=== PATIENT | male | born 1965 | race Caucasian/White ===

== ENCOUNTER 2016-12-04 12:21 | Emergency (ER) | payer OTHER, BC ==
[~2016-12-04] VITALS: Ht 172.7 cm; Wt 107.4 kg
[~2016-12-04 12:21] MED LIST: APRESOLINE100 MG PO; APRESOLINE50 MG PO; ASPIR-TRIN325 M1 PO; ASPIRIN EC325 MG PO; ASPIRIN NON IR325 MG PO; ASPIRIN325 MG PO; Apresolin PO; BENICAR HCT 401 EACH PO; BENICAR HCT1 TABLE1 PO; CALCIUM ACETAT667 M2 PO; CARDIZEM CD,CA240 MG PO; CARDURA4 MG PO; CATAPRES0.2 MG PO; CIPRO500 M1 PO; COLACE100 MG PO; DEPO-TESTOS100 MG/ML IM; DIALYVITE 3,001 EACH PO; ENULOSE10 GM/15 M PO; FISH OIL 1,0001 EAC7 PO; FISH OIL CONC1 EACH PO; FLEXERIL10 MG PO; FORMULA E400 UNIT PO; FUROSEMIDE40 MG PO; GARLIC OIL1000 MG PO; GARLIC1000 MG PO; GEMFIBROZIL600 MG PO; GLUCOSAMINE CH1 EAC2 PO; GLUCOSAMINE-CH1 EA14 PO; HYDRALAZINE HC100 M1 PO; KETOCONAZOLE200 MG PO; LABETALOL HCL100 MG PO; LABETALOL HCL200 MG PO; LASIX40 MG PO; LASIX80 MG PO; LIDOCAINE-PRIL1 EACH TP; LISINOPRIL10 MG PO; LOMOTIL TABLET1 EACH PO; LOPRESSOR100 M1 PO; LORTAB 5-325 M1 EACH PO; Lopressor PO; MEN'S MULTI-VI1 EACH PO; METOPROLOL SUCC25 MG PO; METOPROLOL TAR100 MG PO; NAPROSYN500 MG PO; NEURONTIN100 MG PO; NIFEDICAL XL60 MG PO; NORCO 5/3251 TABLET PO; NORVASC10 MG PO; NOVOLIN 70100 UNITS/ SC; NOVOLIN,HU100 UNITS/ SC; NOVOLOG 10100 UNITS/ SC; NOVOLOG PE100 UNITS/ SC; OMEGA 3-6-91200 MG PO; PANTOPRAZOLE SO40 MG PO; PERCOCET 5/31 TABLET PO; PHOSLO667 MG PO; PRILOSEC20 MG PO; PRINIVIL20 MG PO; PROTONIX40 MG PO; Phoslo PO; RENAL CAPS SOFTG1 MG PO; SENSIPAR30 MG PO; SIMVASTATIN40 MG PO; STOOL SOFTENER100 MG PO; Tylenol Regular Stre PO; VIIBRYD40 MG PO; VITAMIN B-650 MG PO; VITAMIN D1000 INTUN PO; VITAMIN D32000 UNIT PO; VITAMIN E400 UNIT PO; VITAMIN-E400 INTUNI PO; ZAROXOLYN,DIULO5 MG PO; ZESTRIL,PRINIVI10 M1 PO; ZITHROMAX500 MG PO; ZOCOR80 M1 PO; ZYLOPRIM100 MG PO; ZYLOPRIM300 MG PO; Zocor PO
[2016-12-04 13:00] LABS: HEMATOCRIT 32.4 % (38.0-50.0); MCH 30.1 PG (29.0-34.0); MEAN PLAT.VOLUME 9.9 uM^3 (9.0-12.4); PLATELET COUNT 200 K/uL (156-360); RBC DIS.WIDTH-CV 14.2 % (11.8-14.6); RBC DIS.WIDTH-SD 47.4 % (39-53); RED BLOOD COUNT 3.56 M/uL (4.00-5.50); WHITE BLOOD COUNT 6.4 K/uL (4.1-10.2)
[2016-12-04 13:13] LABS: ADD MIUA? YES; BILIRUBIN NEGATIVE; BLOOD SMALL; COLOR YELLOW ((YELLOW)); GLUCOSE (STRIP) NEGATIVE; KETONES NEGATIVE; LEUKOCYTES NEGATIVE; NITRITE NEGATIVE; PROTEIN (STRIP) 100; UROBILINOGEN 0.2 MG/DL (0.2-1.0)
[2016-12-04] MEDS ORDERED: LABETALOL HCL300 MG PO (13:13)
[2016-12-04 13:14] LABS: CHLORIDE 98 mEq/L (99-109); POTASSIUM 4.8 mEq/L (3.7-5.4); SODIUM 137 mEq/L (136-147)
[2016-12-04] MEDS ORDERED: ALLOPURINOL300 MG PO (13:14)
[2016-12-04 13:15] LABS: GLUCOSE 83 mg/dL (70-99)
[2016-12-04] MEDS ORDERED: ASPIR 8181 M1 PO (13:16)
[2016-12-04] MEDS ORDERED: RENAPLEX D PO (13:16)
[2016-12-04 13:17] LABS: ANION GAP 15 MEQ/L (2-14)
[2016-12-04] MEDS ORDERED: LORATADINE10 M2 PO (13:17)
[2016-12-04 13:19] LABS: BACTERIA NONE SEEN /HPF; EPITHELIAL CELLS NONE SEEN /HPF; MUCUS NONE SEEN /LPF; RED BLOOD CELLS 0-5 /HPF (0-5); UCUL ADDED? NO; WHITE BLOOD CELLS NONE SEEN /HPF (0-5)
[2016-12-04 13:19] LABS: GFR ESTIMATE (CALCULATED) 9 mL/min/
[2016-12-04 13:20] LABS: UREA NITROGEN (BUN) 75 mg/dL (9-23)
[2016-12-04] MEDS ORDERED: FISH OIL OMEGA1 EAC2 PO (13:20)
[2016-12-04] MEDS ORDERED: HUMALOG MI100 UNIT/5 SC (13:23)
[2016-12-04] MEDS ORDERED: FLEXERIL5 MG PO (15:18)
[2016-12-04] MEDS ORDERED: NORCO 5/3251 TABLET PO (15:20)
[2016-12-04 15:28] VITALS: BP 182/84
== END 2016-12-04 15:30 | disposition home or self-care (01) ==
LOC: EME 12:21
DX: S39.012A Strain of muscle, fascia and tendon of lower back, initial encounter (principal); X50.3XXA Overexertion from repetitive movements, initial encounter; Y93.H1 Activity, digging, shoveling and raking; I12.9 Hypertensive chronic kidney disease with stage 1 through stage 4 chronic kidney disease, or unspecified chronic kidney disease; N18.9 Chronic kidney disease, unspecified; Z99.2 Dependence on renal dialysis; J45.909 Unspecified asthma, uncomplicated; I11.0 Hypertensive heart disease with heart failure; I50.9 Heart failure, unspecified; E11.9 Type 2 diabetes mellitus without complications; E78.5 Hyperlipidemia, unspecified; I25.2 Old myocardial infarction; K21.9 Gastro-esophageal reflux disease without esophagitis; I25.10 Atherosclerotic heart disease of native coronary artery without angina pectoris; Z98.61 Coronary angioplasty status; Z79.4 Long term (current) use of insulin; Z79.82 Long term (current) use of aspirin; Z87.891 Personal history of nicotine dependence
CPT/HCPCS: 74176; 80048; 81003; 85027; 99281; 99284

== ENCOUNTER 2017-05-18 10:51 | Day surgery (SDC) | payer OTHER, BC ==
[~2017-05-18] VITALS: Ht 175.3 cm; Wt 102.1 kg
[~2017-05-18 10:51] MED LIST changes: +ALLOPURINOL300 MG PO; +ASPIR 8181 M1 PO; +AURYXIA PO; +FISH OIL OMEGA1 EAC2 PO; +FLEXERIL5 MG PO; +HUMALOG MI100 UNIT/5 SC; +HUMALOG100 UNIT/1 SC; +LABETALOL HCL300 MG PO; +LORATADINE10 M2 PO; +RENAPLEX D PO; +REQUIP0.5 MG PO
[2017-05-18 11:39] VITALS: BP 175/80
[2017-05-18 11:39] LABS: POINT-OF-CARE METER ID UU14174212
[2017-05-18 12:55] LABS: METH RESISTANT S AUREUS PCR NEGATIVE (NEGATIVE); PROBE CHECK PASS; SPECIMEN PROCESSING CONTROL PASS
[2017-05-18 13:10] LABS: POINT-OF-CARE METER ID UU14174212
[2017-05-18 14:03] LABS: POINT-OF-CARE METER ID UU13113675
[2017-05-18 14:36] VITALS: BP 185/84
[2017-05-18 15:14] VITALS: BP 183/85
== END 2017-05-18 15:18 | disposition home or self-care (01) ==
LOC: SDC 10:51
PROVIDERS: Ophthalmology
DX: E11.3532 Type 2 diabetes mellitus with proliferative diabetic retinopathy with traction retinal detachment not involving the macula, left eye (principal); H26.9 Unspecified cataract; I12.0 Hypertensive chronic kidney disease with stage 5 chronic kidney disease or end stage renal disease; E11.22 Type 2 diabetes mellitus with diabetic chronic kidney disease; N18.6 End stage renal disease; Z99.2 Dependence on renal dialysis; I25.10 Atherosclerotic heart disease of native coronary artery without angina pectoris; K21.9 Gastro-esophageal reflux disease without esophagitis; Z95.5 Presence of coronary angioplasty implant and graft; Z79.82 Long term (current) use of aspirin; Z79.4 Long term (current) use of insulin; Z87.891 Personal history of nicotine dependence
CPT/HCPCS: 82948; 87641; J0690; J2250; J3300

== ENCOUNTER 2017-08-16 10:48 | Day surgery (SDC) | payer OTHER, BC ==
[~2017-08-16] VITALS: Ht 175.3 cm; Wt 102.1 kg
[~2017-08-16 10:48] MED LIST changes: +NOVOLOG MI100 UNIT/3 SC
[2017-08-16 11:22] LABS: HEMATOCRIT 38.6 % (38.0-50.0); MCV 90.2 FL (86-99)
[2017-08-16 11:47] LABS: ANION GAP 11 MEQ/L (2-14); CHLORIDE 96 MEQ/L (99-109); GFR ESTIMATE (CALCULATED) 20 mL/min/; GLUCOSE 158 mg/dL (70-99); SAMPLE HEMOLYSIS CHECK 0; SAMPLE ICTERIC CHECK 0; SAMPLE LIPEMIA CHECK 0; SODIUM 138 MEQ/L (136-147); UREA NITROGEN (BUN) 22 mg/dL (9-23)
[2017-08-16 11:50] VITALS: BP 115/63
[2017-08-16 12:03] LABS: POINT-OF-CARE METER ID UU14174212
[2017-08-16 12:32] LABS: METH RESISTANT S AUREUS PCR NEGATIVE (NEGATIVE)
[2017-08-16 12:35] LABS: PROBE CHECK PASS; SPECIMEN PROCESSING CONTROL PASS
[2017-08-16 16:04] LABS: POINT-OF-CARE METER ID UU13113675
[2017-08-16 16:36] VITALS: BP 179/108
[2017-08-16 16:45] VITALS: BP 140/70
[2017-08-16 17:37] VITALS: BP 177/76
== END 2017-08-16 18:00 | disposition home or self-care (01) ==
LOC: SDC 10:48
PROVIDERS: Orthopaedic Surgery Hand Surgery
DX: G56.21 Lesion of ulnar nerve, right upper limb (principal); M65.341 Trigger finger, right ring finger; G56.81 Other specified mononeuropathies of right upper limb; I12.0 Hypertensive chronic kidney disease with stage 5 chronic kidney disease or end stage renal disease; E11.22 Type 2 diabetes mellitus with diabetic chronic kidney disease; N18.6 End stage renal disease; Z99.2 Dependence on renal dialysis; E11.42 Type 2 diabetes mellitus with diabetic polyneuropathy; I25.10 Atherosclerotic heart disease of native coronary artery without angina pectoris; I25.2 Old myocardial infarction; Z95.5 Presence of coronary angioplasty implant and graft; J45.909 Unspecified asthma, uncomplicated; M10.9 Gout, unspecified; Z79.4 Long term (current) use of insulin; Z79.82 Long term (current) use of aspirin; Z83.3 Family history of diabetes mellitus; Z82.49 Family history of ischemic heart disease and other diseases of the circulatory system; Z84.1 Family history of disorders of kidney and ureter; Z88.8 Allergy status to other drugs, medicaments and biological substances
CPT/HCPCS: 80048; 82948; 85014; 85018; 87641; J0690; J3010; Q0175; S0020

== ENCOUNTER 2018-03-28 10:24 | Day surgery (SDC) | payer OTHER, BC ==
[~2018-03-28] VITALS: Ht 175.3 cm; Wt 102.1 kg
[~2018-03-28 10:24] MED LIST changes: +CALCIUM ACETAT667 MG PO; +GLUCOSAMINE H1500 MG PO; +HUMALOG MI100 UNIT/6 SC; +HUMALOG100 UNIT/1 SQ; +NORMODYNE,TRAN200 MG PO; +OMEGA 3-6-9 CO400 MG PO; +PROCARDIA XL30 MG PO; +RENAPLEX-D TAB1 EACH PO; +SENSIPAR60 MG PO
[2018-03-28 10:53] VITALS: BP 172/78
[2018-03-28 10:53] LABS: HEMATOCRIT 33.5 % (38.0-50.0); HEMOGLOBIN 11.1 G/DL (12.5-16.6); MCV 93.1 FL (86-99)
[2018-03-28 14:48] VITALS: BP 164/78
== END 2018-03-28 14:55 | disposition home or self-care (01) ==
LOC: SDC 10:24
PROVIDERS: Orthopaedic Surgery Hand Surgery
PROC: 0LN80ZZ Release Left Hand Tendon, Open Approach (ICD-10-PCS; principal; 2018-03-28)
DX: M65.342 Trigger finger, left ring finger (principal); M65.9 Synovitis and tenosynovitis, unspecified; I12.0 Hypertensive chronic kidney disease with stage 5 chronic kidney disease or end stage renal disease; E11.22 Type 2 diabetes mellitus with diabetic chronic kidney disease; N18.6 End stage renal disease; Z99.2 Dependence on renal dialysis; Z87.891 Personal history of nicotine dependence; Z79.4 Long term (current) use of insulin; J45.909 Unspecified asthma, uncomplicated; I25.2 Old myocardial infarction; Z95.5 Presence of coronary angioplasty implant and graft; Z79.82 Long term (current) use of aspirin; I25.10 Atherosclerotic heart disease of native coronary artery without angina pectoris
CPT/HCPCS: 82948; 85014; 85018; J2250; J2405; J2710; J7643; Q0175; S0020

== ENCOUNTER 2018-04-30 06:12 | Day surgery (SDC) | payer OTHER, BC ==
[~2018-04-30] VITALS: Ht 175.3 cm; Wt 102.1 kg
[~2018-04-30 06:12] MED LIST changes: +FLOMAX0.4 MG PO; -RENAPLEX D PO
[2018-04-30 07:26] VITALS: BP 166/77
[2018-04-30 07:38] LABS: CHLORIDE 97 MEQ/L (99-109); CREATININE 7.5 MG/DL (0.6-1.3); GFR ESTIMATE (CALCULATED) 8 mL/min/ (58.99-99999); GLUCOSE 199 mg/dL (70-99); POTASSIUM 5.1 MEQ/L (3.7-5.4); SODIUM 135 MEQ/L (136-147); UREA NITROGEN (BUN) 71 mg/dL (9-23)
[2018-04-30] MEDS ORDERED: IMODIUM A-D2 M2 PO (07:44)
[2018-04-30 10:00] VITALS: BP 166/79
== END 2018-04-30 10:27 | disposition home or self-care (01) ==
LOC: SDC 06:12
PROVIDERS: Internal Medicine
PROC: 08B43ZZ Excision of Right Vitreous, Percutaneous Approach (ICD-10-PCS; principal; 2018-04-30)
PROC: 08QE3ZZ Repair Right Retina, Percutaneous Approach (ICD-10-PCS; principal; 2018-04-30)
DX: E11.3591 Type 2 diabetes mellitus with proliferative diabetic retinopathy without macular edema, right eye (principal); H43.11 Vitreous hemorrhage, right eye
CPT/HCPCS: 80048; 82948; 87641; J0690